=== PATIENT | male | born 1980 | race Caucasian/White ===

== ENCOUNTER → 2017-07-10 07:10 | Outpatient (CLI) | payer BC, SELFPAY ==
[2017-07-10 08:27] LABS: Anion Gap 5 (5-15); BUN 12 mg/dL (7-18); BUN/Creat Ratio 7.3 RATIO (10-20); CPK Total, Creatine Kinase 245 U/L (39-308); Chloride 102 mmol/L (98-107); Creatinine, Serum 1.64 mg/dL (0.70-1.30); EST Glomerular Filtration Rate 50 mL/min (>60); Est Glom Filt Rate - Afr Amer 61 mL/min (>60); Glucose 143 mg/dL (74-106); Potassium 3.9 mmol/L (3.5-5.1); Sodium Level 138 mmol/L (136-145)
== END ==
PROVIDERS: Family Provider Family Medicine; PCP Family Medicine; Visit Provider Internal Medicine Endocrinology, Diabetes & Metabolism
DX: E04.9 Nontoxic goiter, unspecified (principal)
CPT/HCPCS: 36415; 80048; 82550

== ENCOUNTER → 2017-07-24 12:38 | Outpatient (CLI) | payer BC, SELFPAY ==
[2017-07-24 14:03] LABS: Anion Gap 7 (5-15); BUN 9 mg/dL (7-18); Calcium,Total 8.7 mg/dL (8.5-10.1); Chloride 104 mmol/L (98-107); Creatinine, Serum 1.28 mg/dL (0.70-1.30); EST Glomerular Filtration Rate 67 mL/min (>60); Est Glom Filt Rate - Afr Amer 81 mL/min (>60); Glucose 93 mg/dL (74-106); Potassium 4.2 mmol/L (3.5-5.1); Sodium Level 139 mmol/L (136-145)
== END ==
PROVIDERS: Family Provider Family Medicine; PCP Family Medicine; Visit Provider Family Medicine
DX: N28.9 Disorder of kidney and ureter, unspecified (principal)
CPT/HCPCS: 36415; 80048

== ENCOUNTER → 2017-08-21 10:11 | Outpatient (CLI) | payer BC, SELFPAY ==
--- NOTE | 2017-08-21 16:17 | NEURO ---
NCS and/or EMG Patient Report Ordering Doctor: Moris Cobb Ira is a 37-year-old male with chief complaint of numbness and tingling in both hands, worse on the right side. He presents for electrodiagnostic testing. Electrodiagnostic findings: Right median motor nerve demonstrates prolonged distal latency with normal amplitude and conduction velocity. Normal left median motor response. Normal ulnar motor response bilaterally, including conduction across the elbow. Sensory responses are within normal limits. On needle EMG testing, all muscles tested in the upper limbs show no evidence of denervation with normal motor unit action potentials. Electrodiagnostic impression: This is an abnormal study in the upper limbs. 1. Findings demonstrate right-sided median mononeuropathy. This is consistent with a mild right carpal tunnel syndrome If there are any further questions, please do not hesitate to contact me.
== END ==
PROVIDERS: Family Provider Family Medicine; PCP Family Medicine; Visit Provider Internal Medicine Endocrinology, Diabetes & Metabolism
DX: G56.03 Carpal tunnel syndrome, bilateral upper limbs (principal)
CPT/HCPCS: 95886; 95912

== ENCOUNTER → 2017-10-16 08:27 | Outpatient (CLI) | payer BC, SELFPAY ==
[2017-10-16 10:40] LABS: Anion Gap 7 (5-15); BUN 18 mg/dL (7-18); BUN/Creat Ratio 13.2 RATIO (10-20); Calcium,Total 8.9 mg/dL (8.5-10.1); Chloride 106 mmol/L (98-107); Cholesterol 265 mg/dL (200); Creatinine, Serum 1.36 mg/dL (0.70-1.30); EST Glomerular Filtration Rate 63 mL/min (>60); Est Glom Filt Rate - Afr Amer 76 mL/min (>60); Glucose 96 mg/dL (74-106); High Density Lipoprotein 34 mg/dL; Potassium 4.2 mmol/L (3.5-5.1); Sodium Level 142 mmol/L (136-145); Triglycerides 269 mg/dL; Very Low Density Lipoprotein 54 mg/dL (5-40)
== END ==
PROVIDERS: Family Provider Family Medicine; PCP Family Medicine; Visit Provider Family Medicine
DX: Z00.00 Encounter for general adult medical examination without abnormal findings (principal)
CPT/HCPCS: 36415; 80048; 80061

== ENCOUNTER → 2018-02-05 11:45 | Outpatient (CLI) | payer BC, SELFPAY ==
[2018-02-05 14:49] LABS: ALB/GLOB Ratio 1.2 RATIO (0.9-2.4); AST(SGOT) 17 U/L (15-37); Alanine Aminotransfer ALT/SGPT 41 U/L (16-61); Albumin, Serum 4.2 g/dL (3.2-5.0); Alkaline Phosphatase 85 U/L (45-117); Anion Gap 8 (5-15); BUN 13 mg/dL (7-18); BUN/Creat Ratio 10.7 RATIO (10-20); Calcium,Total 8.9 mg/dL (8.5-10.1); Chloride 104 mmol/L (98-107); Cholesterol 218 mg/dL (200); Creatinine, Serum 1.22 mg/dL (0.70-1.30); EST Glomerular Filtration Rate 71 mL/min (>60); Est Glom Filt Rate - Afr Amer 86 mL/min (>60); Globulin 3.5 g/dL (2.2-4.2); Glucose 95 mg/dL (74-106); High Density Lipoprotein 37 mg/dL; Potassium 4.2 mmol/L (3.5-5.1); Protein, Total 7.7 g/dL (6.4-8.2); Sodium Level 139 mmol/L (136-145); Triglycerides 270 mg/dL; Very Low Density Lipoprotein 54 mg/dL (5-40)
== END ==
PROVIDERS: Family Provider Family Medicine; PCP Family Medicine; Visit Provider Family Medicine
DX: E78.5 Hyperlipidemia, unspecified (principal)
CPT/HCPCS: 36415; 80053; 80061

== ENCOUNTER → 2018-04-28 11:51 | Outpatient (CLI) | payer BC, SELFPAY ==
[2018-04-28 14:12] LABS: CRP < 2.90 mg/L (0.0-3.0); Rheumatoid Factor < 10.0 IU/mL (<15)
[2018-04-28 14:13] LABS: Erythrocyte Sedimentation Rate 1 mm/hr (0-15)
[2018-04-30 12:03] LABS: ANTINUCLEAR ANTIBODIES DIRECT Negative (Negative)
--- OUTSIDE RECORDS SUMMARY | 2018-06-21 18:11 | XMS RPT_ITS ---
:1980 Author Organization [facility] Care Team Providers Name Role Phone JORDYN GRACIA Attending Unavailable MORIS COBB Attending Unavailable MORIS COBB Referring Unavailable Nghia Mejia Primary Care Unavailable Nghia Mejia Attending Unavailable Nghia Mejia Referring Unavailable Mejia, Nghia Primary Care Unavailable WIETEREBECCA, MORIS Attending Unavailable WIETECHA, MORIS Referring Unavailable Mejia, Nghia Primary Care Unavailable Mejia, Nghia Attending Unavailable Mejia, Nghia Primary Care Unavailable Mejia, Nghia Attending Unavailable Mejia, Nghia Primary Care Unavailable Mejia, Nghia Attending Unavailable Mejia, Nghia Primary Care Unavailable PROBLEMS PROBLEMS DATE TYPE CONDITION / CODE ATTENDING STATUS SOURCE 03/25/2018 Active Unknown / JORDYN GRACIA Active [facility] UNK(Unknown) Main [place] Repository 10/16/2017 Unknown Z00.00 - Nghia Mejia Active [place] Encounter for [facility] medical Repository examination without abnormal findings / Z00.00(ICD-10) 07/24/2017 Unknown N28.9 - Disorder MejiaNghia wilson Active [place] [facility] ureter, Hospital unspecified / Repository N28.9(ICD-10) 07/10/2017 Unknown 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 For the evaluation of Relative Risk for Cardiovascular Disease, a High Sensitivity CRP (HSCRP) should be ordered. Performed By: #### L501.6710, L505.7010 #### [facility] [address] [place], [place], [id number] RHEUMATOID FACTOR Collected: 04/28/2018 Status: F Source: MANTEE 11:53 AM [facility] REPOSITORY TYPE CODE TESTS RESULT OUT OF RANGE REFERENCE UNITS LAB L505.7010 <15 IU/mL Normal RHEUMATOID FAC < 10.0 Performed By: #### L501.6710, L505.7010 #### [facility] [address] [place], [place], [id number] ERYTHROCYTE SED RATE Collected: 04/28/2018 Status: F Source: ZHOU 11:53 AM [facility] REPOSITORY TYPE CODE TESTS RESULT OUT OF RANGE REFERENCE UNITS LAB L102.0000 0-15 mm/hr Normal SED RATE 1 Performed By: #### L101.9900 #### [facility] [place], [address] ANTINUCLEAR ANTIBODIES Collected: 04/28/2018 Status: F Source: ZOHU DIRECT 11:53 AM [facility] REPOSITORY TYPE CODE TESTS RESULT OUT OF RANGE REFERENCE UNITS LAB L3100.5475 Negative Normal Negative ALCIDES-DIRECT Result Comment: Performed at: - [facility] [address] [id number] Staffing Administrator: Hayder Abreu PhD, Phone: [phone] Performed By: #### L3100.5475 #### [facility] (refer to report for specific site) refer to report for address and phone number PROGRESS Observed: 03/25/2018 Status: COMPLETED Source: [place] 2:04 PM [facility] RE[facility] HNO ID: [id number] Author: Jordyn Gracia Service: (none) Author Type: Physician Type: Progress Notes Filed: 03/25/2018 2:27 PM Note Text: OTONEUROLOGY RE-EVALUATION Last visit: 04/30/17 Overall status: doing fair well ################################################################## ################################################################## Impressions: Improving issues regarding dizziness. Ongoing issues of bilateral (L>R) tinnitus and left facial spasms. Patient manifests an asymmetry of upper cervical spine biomechanics. Recommendations/Plan: Neck physical therapy: continues home exercises Further testing: none at this time - consider audiology evaluation regarding tinnitus Medications: increase gabapentin from 900mg to 1200mg qHS directed toward tinnitus and dizziness. Risks and benefits of the medications were discussed with the patient. Follow-up: PRN. Patient to call in 3-4 weeks to report status. ################################################################## ################################################################## Interval history: Main symptoms: no longer having anxiety (was going for therapy), ongoing tinnitus, muscle spasms in his right ear of in his face at times contracture of facial muscles (shaving, brushing his teeth, smiling) Gabapentin - 900mg qHS Tolerates this Not sure if it's helping Tinnitus: L>R ears High-pitched crickets Constant w/ fluctuation Possibly worse stress? Less aware of this in a louder environment Dizziness: Nothing in a while Imbalance: no Headache: shorter in duration Posterior / behind the ears Dull No throbbing No n/v Photo (always sound sensitive, no worse during a KNIGHT) Few hours (no meds) 2x/month Neck pain: Feels that his neck is better Neck PT/VR: [facility] at [place] Continues HEP ################################################################### Review of Systems: Energy: variable - less when he works more hours than usual Sleep: good ################################################################## Diagnostic tests since last visit: Consultation Dx Date Location PCP Started on crestor for chol Testing Result Date Location Cholesterol blood work ################################################################## Physical Examination: Comprehensive neurological and otological examinations, including musculoskeletal examination of the cervical spine revealed the following findings: Vitals: BP 119/67 Pulse 60 Ht 175.3 cm (5' 9) Wt 105.2 kg (232 lb) BMI 34.26 kg/m? General: Well developed. Well nourished. No acute distress. Pain Behaviors: no pain behaviors observed Carotid examination was normal. General cardiac examination was normal. Mental status examination: Alert and Oriented to time, place and person. Language: fluent speech (limited evaluation) Cranial Nerve exam: Ophthalmologic: Pupils were symmetric. Eye movements: normal, smooth pursuits, no nystagmus. C/o right eye pain with extremes of lateral gaze Facial Strength: symmetric Left Right ESTELLA tender none none ParaC2 tender none none Post. Vertex Normal Normal Cervical spine examination: Position: neutral Flexion: normal and painless Lateral C1 process tenderness: none bilaterally Upper Cervical Rotation: Reduced right Sidebend: Reduced bilaterally, worse to Left Total Cervical Rotation: normal C1 malrotation: Left Motor Exam: Tremor : None Strength (out of 5): Right Left Shoulder Flex 5 5 Gait examination: Usual gait: normal ################################################################## ################################################################## The patient was personally seen and examined by myself. Jordyn Gracia MD [facility]oneurology [facility] T33 cc: Nghia Mejia MD * ? JUDITH Mccauleydsworth * (sent via [employer] - to sec*) (Results of consultation to be transmitted via electronic medical record for those providers who practice within [facility] or with access to [employer] via MD Connect, or via letter) Total time of 19 minutes was spent with the patient regarding the above. Greater than 50% of time was spent on counselling. CHARANJIT Observed: 03/25/2018 Status: COMPLETED Source: [place] 1:40 PM [facility] REPOSITORY Office Visit (LURDES) SHASHI VYAS ([id number]) 1980 M Date Time Provider Department 03/25/18 1:40 PM JORDYN GRACIA During your visit today, we recorded the following information about you: Pulse Blood pressure Weight Height 60/minute 119/67 105.2 kg 1.753 m Jordyn Gracia MD 03/25/2018 2:27 PM Signed OTONEUROLOGY RE-EVALUATION Last visit: 04/30/17 Overall status: doing fair well ################################################################## ################################################################## Impressions: Improving issues regarding dizziness. Ongoing issues of bilateral (L>R) tinnitus and left facial spasms. Patient manifests an asymmetry of upper cervical spine biomechanics. Recommendations/Plan: Neck physical therapy: continues home exercises Further testing: none at this time - consider audiology evaluation regarding tinnitus Medications: increase gabapentin from 900mg to 1200mg qHS directed toward tinnitus and dizziness. Risks and benefits of the medications were discussed with the patient. Follow-up: PRN. Patient to call in 3-4 weeks to report status. ################################################################## ################################################################## Interval history: Main symptoms: no longer having anxiety (was going for therapy), ongoing tinnitus, muscle spasms in his right ear of in his face at times contracture of facial muscles (shaving, brushing his teeth, smiling) Gabapentin - 900mg qHS Tolerates this Not sure if it's helping Tinnitus: L>R ears High-pitched crickets Constant w/ fluctuation Possibly worse stress? Less aware of this in a louder environment Dizziness: Nothing in a while Imbalance: no Headache: shorter in duration Posterior / behind the ears Dull No throbbing No n/v Photo (always sound sensitive, no worse during a KNIGHT) Few hours (no meds) 2x/month Neck pain: Feels that his neck is better Neck PT/VR: [facility] at [place] Continues HEP ################################################################### Review of Systems: Energy: variable - less when he works more hours than usual Sleep: good ################################################################## Diagnostic tests since last visit: Consultation Dx Date Location PCP Started on crestor for chol Testing Result Date Location Cholesterol blood work ################################################################## Physical Examination: Comprehensive neurological and otological examinations, including musculoskeletal examination of the cervical spine revealed the following findings: Vitals: BP 119/67 Pulse 60 Ht 175.3 cm (5' 9) Wt 105.2 kg (232 lb) BMI 34.26 kg/m? General: Well developed. Well nourished. No acute distress. Pain Behaviors: no pain behaviors observed Carotid examination was normal. General cardiac examination was normal. Mental status examination: Alert and Oriented to time, place and person. Language: fluent speech (limited evaluation) Cranial Nerve exam: Ophthalmologic: Pupils were symmetric. Eye movements: normal, smooth pursuits, no nystagmus. C/o right eye pain with extremes of lateral gaze Facial Strength: symmetric Left Right ESTELLA tender none none ParaC2 tender none none Post. Vertex Normal Normal Cervical spine examination: Position: neutral Flexion: normal and painless Lateral C1 process tenderness: none bilaterally Upper Cervical Rotation: Reduced right Sidebend: Reduced bilaterally, worse to Left Total Cervical Rotation: normal C1 malrotation: Left Motor Exam: Tremor : None Strength (out of 5): Right Left Shoulder Flex 5 5 Gait examination: Usual gait: normal ################################################################## ################################################################## The patient was personally seen and examined by myself. Jordyn Gracia MD [facility]oneurology [facility] T33 cc: Nghia Mejia MD * ? JUDITH Mccauley * (sent via [employer] - to sec*) (Results of consultation to be transmitted via electronic medical record for those providers who practice within [facility] or with access to [employer] via MD Connect, or via letter) Total time of 19 minutes was spent with the patient regarding the above. Greater than 50% of time was spent on counselling. 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 MAGNESIUM 250 MG TABLET Take 250 mg by mouth once matthew* * DESONIDE 0.05 % LOTION Apply to affected area(s) of * BUPROPION XL 150 MG TAB Take 150 mg by mouth once matthew* GINKGO BILOBA 40 MG CAPSULE Take by mouth once daily. Problem List As Of Date 03/25/2018 Noted Resolved VENTRAL HERNIA NOS [K43.9] INVALID FOR* OTHER PSORIASIS [L40.8] INVALID FOR* SEBORRHEIC DERMATITIS NOS [L21.9] INVALID FOR* Sebaceous cyst [L72.3] INVALID FOR* Hyperlipidemia [E78.5] INVALID FOR*09/14/2015 More... Dyslipidemia (high LDL; low HDL) [E78.5] INVALID FOR* Sinus bradycardia [R00.1] INVALID FOR* Orthostasis [I95.1] INVALID FOR* Prescriptions ordered this encounter Disp Refills Start End GABAPENTIN 300 MG CAPSULE 120 * 11 03/25/2018 03/25/2019 Route: ORAL Sig: Take 4 capsules by mouth daily at bedtime. Medications Discontinued During This Encounter gabapentin (NEURONTIN) 300 mg capsule 90 c* 3 12/20/2017 03/25/2018 Route: ORAL Sig: Take 3 capsules by mouth daily at bedtime. Disc: Reason for discontinue is not on file. Follow-up and Disposition History Recorded Encounter Status:Closed by JORDYN GRACIA MD on 03/25/18 COMPREHENSIVE METABOLIC Collected: 02/05/2018 Status: F Source: ZHOU NICHOLSON 11:46 AM [facility] REPOSITORY Order Comment: Order Date: 02/04/18 Order Info: 0786-1 - CMP Order Info: 27273-7 - LIPID TYPE CODE TESTS RESULT OUT OF RANGE REFERENCE UNITS LAB L501.0100 74-106 mg/dL Normal GLU 95 Result Comment: Please note revised GLUCOSE reference range effective 2017. LAB L501.1000 7-18 mg/dL Normal BUN 13 LAB L501.1100 0.70-1.30 mg/dL Normal CREAT,SERUM 1.22 Result Comment: The validity of the calculated GFR AND GFRAA in patients over 70 years has not been determined. Clinical correlation is essential. LAB L501.1110 >60 mL/min Normal EST GFR 71 Result Comment: Non- GFR Calc LAB L501.1115 >60 mL/min Normal EST GFR - AA 86 Result Comment: GFR Calc LAB L501.1300 10-20 RATIO Normal BUN/CRE 10.7 LAB L501.1500 6.4-8.2 g/dL T Normal PROT 7.7 LAB L501.1800 3.2-5.0 g/dL Normal ALB 4.2 LAB L501.1950 2.2-4.2 g/dL Normal GLOB 3.5 LAB L501.2000 0.9-2.4 RATIO Normal A/G 1.2 LAB L501.2200 8.5-10.1 mg/dL CA Normal 8.9 LAB L501.4100 15-37 U/L Normal AST 17 LAB L501.4305 45-117 U/L Normal ALK P 85 LAB L501.4405 16-61 U/L Normal ALT 41 LAB L501.4600 0.20-1.00 mg/dL T Normal BILI 0.40 LAB L501.5300 136-145 mmol/L NA Normal 139 LAB L501.5600 3.5-5.1 mmol/L K Normal 4.2 LAB L501.5900 98-107 mmol/L CL Normal 104 LAB L501.6100 21.0-32.0 mmol/L Normal CO2 27.0 LAB L501.6200 5-15 Normal GAP 8 Performed By: #### L500.4050, L500.4100 #### [facility] [address] [place], [place], [address] LIPID PROFILE Collected: 02/05/2018 Status: F Source: ZHOU 11:46 AM [facility] REPOSITORY Order Comment: Order Date: 02/04/18 Order Info: [id number] - CMP Order Info: 10294-5 - LIPID TYPE CODE TESTS RESULT OUT OF RANGE REFERENCE UNITS LAB L501.4900 200 mg/dL High CHOL 218 Result Comment: <200 mg/dL Desirable 200-240 mg/dL Borderline >240 mg/dL High Risk LAB L501.5000 mg/dL High TRIG 270 Result Comment: The drugs N-Acetylcysteine and Metamizole may falsely depress this assay. Serum Triglycerides Reference Interval Normal <150 mg/dL Borderline high 150 - 199 mg/dL High 200 - 499 mg/dL Very High > or = 500 mg/dL LAB L501.6400 mg/dL Low HDL 37 Result Comment: The drugs N-Acetylcysteine and Metamizole may falsely depress this assay. Reference Range HDL <40 mg/dL Low HDL Cholesterol HDL >or= 60 mg/dL High HDL Cholesterol LAB L501.6500 0-130 mg/dL Normal LDL 127 LAB L501.6600 5-40 mg/dL High VLDL 54 Performed By: #### L500.4050, L500.4100 #### [facility] [address] [facility] [place], [place], [address] BASIC METABOLIC Collected: 10/16/2017 Status: F Source: ZHOU PROFILE (BMP) 8:28 AM [facility] REPOSITORY TYPE CODE TESTS RESULT OUT OF RANGE REFERENCE UNITS LAB L501.0100 74-106 mg/dL Normal GLU 96 Result Comment: Please note revised GLUCOSE reference range effective 2017. LAB L501.1000 7-18 mg/dL Normal BUN 18 LAB L501.1100 0.70-1.30 mg/dL High CREAT,SERUM 1.36 Result Comment: The validity of the calculated GFR AND GFRAA in patients over 70 years has not been determined. Clinical correlation is essential. LAB L501.1110 >60 mL/min Normal EST GFR 63 Result Comment: Non- GFR Calc LAB L501.1115 >60 mL/min Normal EST GFR - AA 76 Result Comment: GFR Calc LAB L501.1300 10-20 RATIO Normal BUN/CRE 13.2 LAB L501.2200 8.5-10.1 mg/dL CA Normal 8.9 LAB L501.5300 136-145 mmol/L NA Normal 142 LAB L501.5600 3.5-5.1 mmol/L K Normal 4.2 LAB L501.5900 98-107 mmol/L CL Normal 106 LAB L501.6100 21.0-32.0 mmol/L Normal CO2 29.0 LAB L501.6200 5-15 Normal GAP 7 Performed By: #### L500.2500, L500.4100 #### [facility] [address] [place], [place], [id number] LIPID PROFILE Collected: 10/16/2017 Status: F Source: [place] 8:28 AM [facility] REPOSITORY TYPE CODE TESTS RESULT OUT OF RANGE REFERENCE UNITS LAB L501.4900 200 mg/dL High CHOL 265 Result Comment: <200 mg/dL Desirable 200-240 mg/dL Borderline >240 mg/dL High Risk LAB L501.5000 mg/dL High TRIG 269 Result Comment: The drugs N-Acetylcysteine and Metamizole may falsely depress this assay. Serum Triglycerides Reference Interval Normal <150 mg/dL Borderline high 150 - 199 mg/dL High 200 - 499 mg/dL Very High > or = 500 mg/dL LAB L501.6400 mg/dL Low HDL 34 Result Comment: The drugs N-Acetylcysteine and Metamizole may falsely depress this assay. Reference Range HDL <40 mg/dL Low HDL Cholesterol HDL >or= 60 mg/dL High HDL Cholesterol LAB L501.6500 0-130 mg/dL High LDL 177 LAB L501.6600 5-40 mg/dL High VLDL 54 Performed By: #### L500.2500, L500.4100 #### [facility] [address] [place], [place], [id number] NCS AND/OR EMG Observed: 08/21/2017 Status: F Source: ZHOU PATIENT 4:37 PM [facility] REPOSITORY [facility] Pulmonary Services/Neurology [address] [place] [address] MR#: [id number] Acct: [id number] Name: SHASHI VYAS Rep #: [id number] : 1980 37 From: Irina Espinoza MD Referring Dr: MORIS COBB Status: REG CLI Ordering Dr: Date: [facility] Sex[facility] M C NCS and/or EMG Patient Report Ordering Doctor: Moris Cobb Shashi Ira is a 37-year-old male with chief complaint of numbness and tingling in both hands, worse on the right side. He presents for electrodiagnostic testing. Electrodiagnostic findings: Right median motor nerve demonstrates prolonged distal latency with normal amplitude and conduction velocity. Normal left median motor response. Normal ulnar motor response bilaterally, including conduction across the elbow. Sensory responses are within normal limits. On needle EMG testing, all muscles tested in the upper limbs show no evidence of denervation with normal motor unit action potentials. Electrodiagnostic impression: This is an abnormal study in the upper limbs. 1. Findings demonstrate right-sided median mononeuropathy. This is consistent with a mild right carpal tunnel syndrome If there are any further questions, please do not hesitate to contact me. 08/21/17 1637 <Electronically signed by Irina Espinoza MD> Date Irina Espinoza MD CC: Irina Espinoza; MORIS COBB; Nghia Mejia MD Date Dictated: 08/21/171616 Date Transcribed: 08/21/171616 Major Assembly Inspector: LINDA Signed BASIC METABOLIC Collected: 07/24/2017 Status: F Source: ZHOU PROFILE (BMP) 12:46 PM [facility] REPOSITORY TYPE CODE TESTS RESULT OUT OF RANGE REFERENCE UNITS LAB L501.0100 74-106 mg/dL Normal GLU 93 Result Comment: Please note revised GLUCOSE reference range effective 2017. LAB L501.1000 7-18 mg/dL Normal BUN 9 LAB L501.1100 0.70-1.30 mg/dL Normal CREAT,SERUM 1.28 Result Comment: The validity of the calculated GFR AND GFRAA in patients over 70 years has not been determined. Clinical correlation is essential. LAB L501.1110 >60 mL/min Normal EST GFR 67 Result Comment: Non- GFR Calc LAB L501.1115 >60 mL/min Normal EST GFR - AA 81 Result Comment: GFR Calc LAB L501.1300 10-20 RATIO Low BUN/CRE 7.0 LAB L501.2200 8.5-10.1 mg/dL Normal CA 8.7 LAB L501.5300 136-145 mmol/L Normal NA 139 LAB L501.5600 3.5-5.1 mmol/L Normal K 4.2 Result Comment: Slight Hemolysis, Result may be falsely increased. LAB L501.5900 98-107 mmol/L Normal CL 104 LAB L501.6100 21.0-32.0 mmol/L Normal CO2 28.0 LAB L501.6200 5-15 Normal 7 GAP Performed By: #### L500.2500 #### [facility] [address] [place], [address] BASIC METABOLIC Collected: 07/10/2017 Status: F Source: [place] PROFILE ([facility]) 7:14 AM [facility] REPOSITORY TYPE CODE TESTS RESULT OUT OF RANGE REFERENCE UNITS LAB L501.0100 74-106 mg/dL High GLU 143 Result Comment: Fasting Glucose result greater than or equal to 126 mg/dL suggests DIABETES MELLITUS per A.D.A. criteria. Please note revised GLUCOSE reference range effective 2017. LAB L501.1000 7-18 mg/dL Normal BUN 12 LAB L501.1100 0.70-1.30 mg/dL High CREAT,SERUM 1.64 Result Comment: The validity of the calculated GFR AND GFRAA in patients over 70 years has not been determined. Clinical correlation is essential. LAB L501.1110 >60 mL/min Low EST GFR 50 Result Comment: Non- GFR Calc LAB L501.1115 >60 mL/min Normal EST GFR - AA 61 Result Comment: GFR Calc LAB L501.1300 10-20 RATIO Low BUN/CRE 7.3 LAB L501.2200 8.5-10.1 mg/dL Normal CA 9.0 LAB L501.5300 136-145 mmol/L Normal NA 138 LAB L501.5600 3.5-5.1 mmol/L Normal K 3.9 LAB L501.5900 98-107 mmol/L Normal CL 102 LAB L501.6100 21.0-32.0 mmol/L Normal CO2 31.0 LAB L501.6200 5-15 Normal GAP 5 Performed By: #### L500.2500, L501.3620 #### [facility] [address] [place], [address] CPK TOTAL, CREATINE Collected: 07/10/2017 Status: F Source: [place] KINASE 7:14 AM [facility] REPOSITORY TYPE CODE TESTS RESULT OUT OF RANGE REFERENCE UNITS LAB L501.3620 39-308 U/L Normal CPK TOTAL 245 Performed By: #### L500.2500, L501.3620 #### [facility] [address] [place], [address] ALLERGIES ALLERGIES DATE TYPE / CODE NAME / CODE REACTION SEVERITY SOURCE 09/17/2015 Drug No Known Unknown [facility] Allergy/416 Allergies/Y79011 Hospital [id number](SNOM 0388(RXNORM) Repository ED CT) Drug NO KNOWN [facility] Class/77918 ALLERGIES [facility] 1003(SNOMED Repository CT) ENCOUNTERS ENCOUNTERS ADMIT/DISCHARGE ACCOUNT ADMITTING ENCOUNTER LOCATION SOURCE NUMBER CLASS 04/28/2018 [id number] [facility] ing:MFPLAB Repository 03/25/2018/03/26/20 [id number] Ambulatory [address] Repository 02/05/2018 [id number] [facility] ing:MFPLAB Repository 10/16/2017 [id number] [facility] ing:MFPLAB Repository 08/21/2017 [id number] [facility] ing:PSN Repository 07/24/2017 [id number] [facility] ing:LAB Repository 07/10/2017 [id number] Ambulatory [place] [facility] ing:LAB Repository PAYERS PAYERS ENCOUNTER GUARANTOR PAYER SUBSCRIBER SOURCE 04/28/2018 Shashi R Primary Shashi R [place] [id number] Insurance:ANTHEMPolic [facility] [place] Number: [id number] [address]Ply: (330) [id number] Repository [phone] () Date:[id number] [place] [address] [id number]: 04/28/2018 Secondary NOT GIVENUNK [place] Insurance:SELF PAY [place] [facility] Number: Effective Repository Date:2018-04-28 02/05/2018 Shashi R Primary Shashi R [place] [id number] [place] Insurance:ANTHEMPolic [place]D[facility] [place] [facility]: [id number] [id number]: [phone]) [id number] Repository [phone] () Date:[id number] [address]WQ: 02/05/2018 Secondary NOT GIVENUNK [place] Insurance:SELF PAY [facility] Number: Effective Repository Date:2018-02-05 10/16/2017 Shashi R Primary Shashi R [place] [id number] [place] Insurance:ANTHEMPolic AngleDOB: [facility] [place] Number: [id number] [address]Afv: [phone]) [id number] Repository [phone] () Date:[id number] [address]GX: 10/16/2017 Secondary NOT GIVENUNK [place] Insurance:SELF PAY [facility] Number: Effective Repository Date:2017-10-16 08/21/2017 Shashi R Primary Shashi R [place] [id number] DOMTIILA Insurance:ANTHEMPolic AngleDOB: [facility] [place] [facility]: [id number] [address]Bvk: [phone]) [id number] Repository [phone] () Date:[id number] [address]HH: 08/21/2017 Secondary NOT GIVENUNK [place] Insurance:SELF PAY [facility] Number: Effective Repository Date:2017-07-02 07/24/2017 Shashi R Primary Shashi R [place] [id number] [place] Insurance:ANTHEMPolic AngleD[place]: [id number] [address]Omg: (330) [id number] Repository [phone] () Date:3974-02-98[address], [place] [address]PZ: 07/24/2017 Secondary NOT GIVENUNK [place] Insurance:SELF PAY [facility] Number: Effective Repository Date:2017-07-24 07/10/2017 Shashi R Primary Shashi R [place] [id number] [place] Insurance:ANTHEMPolic AngleDOB: [place] Number: [id number] [address]Vbh: (330) [id number] Repository [phone] () Date:1964-74-76[address], [place] [address]NB: 07/10/2017 Secondary NOT GIVENUNK [place] Insurance:SELF PAY [facility] Number: Effective Repository Date:2017-07-10
== END ==
PROVIDERS: Family Provider Family Medicine; PCP Family Medicine; Visit Provider Family Medicine
DX: R52 Pain, unspecified (principal)
CPT/HCPCS: 36415; 85652; 86038; 86140; 86431

== ENCOUNTER → 2018-07-17 12:12 | Outpatient (CLI) | payer BC, SELFPAY ==
[2018-07-17 14:11] LABS: Absolute Lymphocyte Count 2.02 X10^3/ul (0.83-4.51); Absolute Neutrophil Count 3.1 X10^3/uL (2.0-7.7); Basophil# 0.01 X10^3/uL; Basophil% 0.2 % (0-1); Eosinophil# 0.07 X10^3/uL; Eosinophils% 1.3 % (0-5); Hematocrit 47.1 % (40-54); Hemoglobin 15.8 g/dl (13.0-16.5); Lymphocyte # 2.02 X10^3/ul (4.0); Lymphocyte % 36.3 % (19-41); Mean Corp Hgb Conc 33.5 g/gl (32-36); Mean Corpuscular Hgb 28.7 pg (27.0-32.0); Mean Corpuscular Volume 85.5 fL (80-94); Mean Platelet Vol. 9.6 fl (6.2-12.0); Monocyte# 0.34 X10^3/uL; Monocyte% 6.1 % (0-10); Neutrophil # 3.12 X10^3/uL (2.7-7.7); Neutrophil % 55.9 % (47-70); Platelet Count 341 K/mm3 (150-450); RBC Distribution Width CV 12.5 % (11.6-14.6); RBC Distribution Width SD 39.1 fl (35.1-43.9); Red Blood Count 5.51 M/mm3 (4.6-6.2); White Blood Count 5.6 K/mm3 (4.4-11.0)
[2018-07-17 14:14] LABS: POSITIVE COUNT NO; POSITIVE DIFFERENTIAL NO; POSITIVE MORPHOLOGY NO
[2018-07-17 14:32] LABS: Vitamin B12 1988 pg/mL (211-911); Vitamin D,25 Hydroxy 37.7 ng/mL (29.95-100.01)
[2018-07-17 15:01] LABS: ALB/GLOB Ratio 1.3 RATIO (0.9-2.4); AST(SGOT) 24 U/L (15-37); Alanine Aminotransfer ALT/SGPT 56 U/L (16-61); Albumin, Serum 4.2 g/dL (3.2-5.0); Alkaline Phosphatase 95 U/L (45-117); Anion Gap 9 (5-15); BUN 21 mg/dL (7-18); BUN/Creat Ratio 17.5 RATIO (10-20); Calcium,Total 8.6 mg/dL (8.5-10.1); Chloride 104 mmol/L (98-107); EST Glomerular Filtration Rate 72 mL/min (>60); Est Glom Filt Rate - Afr Amer 87 mL/min (>60); Globulin 3.3 g/dL (2.2-4.2); Glucose 84 mg/dL (74-106); Luteinizing Hormone 3.6 mIU/mL; Potassium 3.8 mmol/L (3.5-5.1); Protein, Total 7.5 g/dL (6.4-8.2); Sodium Level 142 mmol/L (136-145); T4 Free Direct 0.95 ng/dL (0.76-1.46); Thyroid Stim Hormone (TSH) 1.58 uIU/mL (0.358-3.74)
[2018-07-20 13:56] LABS: DHEA Sulfate 83.3 ug/dL (102.6-416.3); Testosterone, % Free 2.53 % (1.50-4.20); Testosterone, Free 10.65 ng/dL (5.00-21.00)
[2018-07-21 12:22] LABS: Anti-Thyroglobulin AB < 1.0 IU/mL (0.0-0.9); Testosterone, Total 421 ng/dL (264-916); Thyroglobulin, Serum Qt. 6.9 ng/mL (1.4-29.2); Thyroid Peroxidase AB 11 IU/mL (0-34)
== END ==
PROVIDERS: Family Provider Family Medicine; PCP Family Medicine; Referring Provider Family Medicine; Visit Provider Internal Medicine Endocrinology, Diabetes & Metabolism
DX: E04.9 Nontoxic goiter, unspecified (principal); E29.1 Testicular hypofunction; E55.9 Vitamin D deficiency, unspecified; E53.9 Vitamin B deficiency, unspecified
CPT/HCPCS: 36415; 80053; 82306; 82607; 82627; 83002; 84402; 84403; 84432; 84439; 84443; 85025; 86376; 86800; 82626

== ENCOUNTER → 2018-08-21 09:19 | Outpatient (CLI) | payer BC, SELFPAY ==
[2018-08-21 10:51] LABS: Anion Gap 4 (5-15); BUN 16 mg/dL (7-18); BUN/Creat Ratio 12.4 RATIO (10-20); Calcium,Total 9.1 mg/dL (8.5-10.1); Chloride 105 mmol/L (98-107); Cholesterol 201 mg/dL (200); Creatinine, Serum 1.29 mg/dL (0.70-1.30); EST Glomerular Filtration Rate 66 mL/min (>60); Est Glom Filt Rate - Afr Amer 80 mL/min (>60); Glucose 74 mg/dL (74-106); High Density Lipoprotein 33 mg/dL; Potassium 4.7 mmol/L (3.5-5.1); Sodium Level 138 mmol/L (136-145); Thyroid Stim Hormone (TSH) 1.49 uIU/mL (0.358-3.74); Triglycerides 281 mg/dL; Very Low Density Lipoprotein 56 mg/dL (5-40)
== END ==
PROVIDERS: Family Provider Family Medicine; PCP Family Medicine; Referring Provider Family Medicine; Visit Provider Family Medicine
DX: Z00.00 Encounter for general adult medical examination without abnormal findings (principal)
CPT/HCPCS: 36415; 80048; 80061; 84403; 84443

== ENCOUNTER → 2020-09-08 12:25 | Outpatient (CLI) | payer BC, SELFPAY ==
[2020-09-08 15:51] LABS: ALB/GLOB Ratio 1.3 RATIO (0.9-2.4); AST(SGOT) 13 U/L (15-37); Alanine Aminotransfer ALT/SGPT 33 U/L (16-61); Albumin, Serum 4.2 g/dL (3.2-5.0); Alkaline Phosphatase 87 U/L (45-117); Anion Gap 6 (5-15); BUN 15 mg/dL (7-18); BUN/Creat Ratio 14.3 RATIO (10-20); Calcium,Total 8.8 mg/dL (8.5-10.1); Chloride 104 mmol/L (98-107); Cholesterol 217 mg/dL (200); Creatinine, Serum 1.05 mg/dL (0.70-1.30); EST Glomerular Filtration Rate 83 mL/min (>60); Est Glom Filt Rate - Afr Amer 100 mL/min (>60); Globulin 3.2 g/dL (2.2-4.2); Glucose 62 mg/dL (74-106); High Density Lipoprotein 42 mg/dL; Potassium 3.5 mmol/L (3.5-5.1); Protein, Total 7.4 g/dL (6.4-8.2); Sodium Level 138 mmol/L (136-145); Triglycerides 128 mg/dL; Very Low Density Lipoprotein 26 mg/dL (5-40)
== END ==
PROVIDERS: PCP Family Medicine; Referring Provider Family Medicine; Visit Provider Family Medicine
DX: E78.5 Hyperlipidemia, unspecified (principal)
CPT/HCPCS: 36415; 80053; 80061

== ENCOUNTER → 2021-03-13 11:04 | Outpatient (CLI) | payer BC, SELFPAY ==
[2021-03-13 12:58] LABS: ALB/GLOB Ratio 1.2 RATIO (0.9-2.4); AST(SGOT) 14 U/L (15-37); Alanine Aminotransfer ALT/SGPT 27 U/L (16-61); Albumin, Serum 3.8 g/dL (3.2-5.0); Alkaline Phosphatase 74 U/L (45-117); Anion Gap 5 (5-15); BUN 15 mg/dL (7-18); BUN/Creat Ratio 12.2 RATIO (10-20); Calcium,Total 8.4 mg/dL (8.5-10.1); Chloride 106 mmol/L (98-107); Cholesterol 146 mg/dL (200); Creatinine, Serum 1.23 mg/dL (0.70-1.30); EST Glomerular Filtration Rate 69 mL/min (>60); Est Glom Filt Rate - Afr Amer 83 mL/min (>60); Globulin 3.1 g/dL (2.2-4.2); Glucose 80 mg/dL (74-106); High Density Lipoprotein 46 mg/dL; Potassium 3.8 mmol/L (3.5-5.1); Protein, Total 6.9 g/dL (6.4-8.2); Sodium Level 141 mmol/L (136-145); Triglycerides 128 mg/dL; Very Low Density Lipoprotein 26 mg/dL (5-40)
== END ==
PROVIDERS: PCP Family Medicine; Visit Provider Family Medicine
DX: E78.5 Hyperlipidemia, unspecified (principal)
CPT/HCPCS: 36415; 80053; 80061

== ENCOUNTER 2021-09-11 10:14 | Outpatient (CLI) | payer BC, SELFPAY ==
[2021-09-11 12:23] LABS: ALB/GLOB Ratio 1.2 RATIO (0.9-2.4); AST(SGOT) 15 U/L (15-37); Alanine Aminotransfer ALT/SGPT 34 U/L (16-61); Albumin, Serum 3.9 g/dL (3.2-5.0); Alkaline Phosphatase 69 U/L (45-117); Anion Gap 7 (5-15); BUN 26 mg/dL (7-18); BUN/Creat Ratio 20.8 RATIO (10-20); Calcium,Total 8.7 mg/dL (8.5-10.1); Chloride 105 mmol/L (98-107); Cholesterol 157 mg/dL (200); Creatinine, Serum 1.25 mg/dL (0.70-1.30); EST Glomerular Filtration Rate 68 mL/min (>60); Est Glom Filt Rate - Afr Amer 82 mL/min (>60); Globulin 3.2 g/dL (2.2-4.2); Glucose 69 mg/dL (74-106); High Density Lipoprotein 43 mg/dL; Protein, Total 7.1 g/dL (6.4-8.2); Sodium Level 139 mmol/L (136-145); Triglycerides 140 mg/dL; Very Low Density Lipoprotein 28 mg/dL (5-40)
== END 2021-09-11 23:59 | disposition home or self-care (01) ==
LOC: MFPLAB 10:15
PROVIDERS: PCP Family Medicine; Visit Provider Family Medicine
DX: E78.5 Hyperlipidemia, unspecified (principal)
CPT/HCPCS: 36415; 80053; 80061

== ENCOUNTER → 2021-10-18 | Outpatient (CLI) | payer BC, SELFPAY ==
--- NOTE | 2021-10-18 | LIP_PTH ---
PATIENT: ABY VYAS LOC: [facility] U#:[id number] AGE/SX: 41/M ROOM: RE10/18/[address]: Dr. Louis Crawford MD : 1980 BED: DIS: 10/18/2021 SPEC #: [id number] RECD: 10/18/21 13:44 STATUS: SIDNEY DALEYBrissa #: [id number] SUSAN: 10/18/21 00:[address]: Louis Crawford DEPT: SURGICAL PATHOLOGY RECD BY: Cosmo Blank ENTERED: 10/18/21 13:45 SP TYPE: LIPOMA OTHR DR: Dr. Nghia Mejia MD Tissues: Soft tissues, NOS Procedures: Surgery Specimen Level III HEADER OPERATION: Excision of lipoma on chest left PRE-OP DIAGNOSIS: Left chest lipoma TISSUE SUBMITTED: Lipoma MICROSCOPIC DIAGNOSIS Left chest lipoma, excision: Mature adipose tissue, consistent with lipoma. SJ:lydia 10/19/2021 MICROSCOPIC DESCRIPTION Slides are reviewed. GROSS DESCRIPTION Received in fixative is one container labeled with the patient's name and designated left chest lipoma. The specimen consists of two pieces of yellow adipose tissue measuring in aggregate 5 x 4.5 x 1.5 cm. Sections reveal yellow adipose cut surfaces without area of hemorrhage, necrosis or cystic degeneration. Assistant Grocery Store Manager sections are submitted in two cassettes. / SJ:rg 10/18/2021 TC:1 CPT: 82162
== END | disposition home or self-care (01) ==
LOC: LABSPEC 11:40
PROVIDERS: PCP Family Medicine; Referring Provider Surgery; Visit Provider Surgery
DX: D17.1 Benign lipomatous neoplasm of skin and subcutaneous tissue of trunk (principal)
CPT/HCPCS: 88304

== ENCOUNTER 2021-10-21 10:37 | Emergency (ER) | payer BC, SELFPAY ==
[2021-10-21 10:38] VITALS: BP 117/93; PULSE 64; RESP 18; TEMP 36.1; O2SAT 97; BMI 32.6
--- NOTE | 2021-10-21 11:01 | EKG12_ITS ---
Test Reason : SYNCOPE Blood Pressure : / mmHG Vent. Rate : 052 BPM Atrial Rate : 052 BPM P-R Int : 180 ms QRS Dur : 092 ms QT Int : 376 ms P-R-T Axes : 053 -21 -24 degrees QTc Int : 349 ms Sinus bradycardia Nonspecific ST abnormality Abnormal ECG Confirmed by ANGI CHARLES, DANIKA ([id number]), society editor NITIN CASTELAN ([id number]) on 10/24/2021 1:10:23 PM Referred By: SHANNAN/YUE Confirmed By:DANIKA WHITLEY MD
--- NOTE | 2021-10-21 11:01 | EX.ED.DYSGE1 ---
HPI History of Present Illness Chief Complaint: Syncope Informant: patient Narrative Narrative: 41-year-old male presented to the emergency room following a syncopal episode. Patient states that this morning he was laying in bed when he got a cramp on his left thigh. His significant other states that he then passed out. She states that he was twitching. He states one of the twitches caused him to come back awake. He does not recall having any chest pain or palpitations. No nausea. He denies being sweaty. No loss of bowel or bladder control. No oral pharyngeal injury. He has had a prior syncopal episode following a MMR injection as a teenager. He works out 5 days a week and has recently ran a [employer] without any difficulty. [facility] Medical History Anxiety Hyperlipidemia Hypoglycemia Narcolepsy Panic disorder Psoriasis Home Medications gabapentin 300 mg capsule 900 mg PO QHS 10/02/21 [History Last Taken Unknown] rosuvastatin 20 mg tablet 20 mg PO DAILY 10/02/21 [History Last Taken Unknown] Allergy/AdvReac Type Severity Reaction Status Date / Time sertraline AdvReac Mild restless Verified 10/21/21 10:38 legs Family History Father Diabetes Mother Heart disease Surgical History History of repair of ACL History of umbilical hernia repair Social History (Updated 10/21/21 @ 11:[address] Juan Manuel Diego DO) Smoking Status: Former smoker substance use type: does not use ROS ROS ED Constitutional Constitutional ED: Denies chills, fever(s) or weight loss Eyes Eyes: Denies change in vision or diplopia ENT ENT ED: Denies ear pain, rhinorrhea or sore throat Cardiovascular Cardiovascular: Reports other Details: Syncope ; Denies chest pain, orthopnea, palpitations or racing heartbeat Respiratory/Chest Respiratory/Chest: Denies cough, dyspnea or orthopnea Gastrointestinal Gastrointestinal: Denies abdominal pain, diarrhea, nausea or vomiting Genitourinary Genitourinary ED: Denies dysuria, hematuria or urinary frequency Musculoskeletal Musculoskeletal: Reports other Details: Left thigh cramp ; Denies arthralgias or myalgias Integumentary Denies abscess or rash Neurologic Neurologic: Denies headache(s) or weakness Psychiatric Psychiatric: Denies anxiety, depression, suicidal ideation or suicidal thoughts Endocrine Endocrinology: Denies polydipsia, polyphagia or polyuria Allergic/Immunologic Allergic/Immunologic ED: Denies mouth swelling, tongue swelling or urticaria EXAM Physical Exam Const Vital Signs: 10/21/21 10:38 10/21/21 11:03 Temperature 97.0 F L Temperature Source Temporal Pulse Rate 64 Respiratory Rate 18 Respiratory Effort Normal Non-Labored Blood Pressure 117/93 H Blood Pressure Mean 101 Pulse Ox 97 Oxygen Delivery Method Room Air Positive well nourished and well developed General Appearance ED: well developed HEENT Reports normocephalic, head/scalp atraumatic, TM's clear and moist mucous membranes Negative for trauma Tympanic Membrane ED: Yes TM's clear Eyes PERRL and EOMs intact bilaterally Neck no lymphadenopathy, supple and no JVD Resp normal respiratory effort and clear to auscultation bilaterally Cardio regular rate, regular rhythm and no murmurs GI normal to inspection, nondistended, normoactive bowel sounds and non-tender Palpation: soft Back/Spine no CVA tenderness and normal ROM Extremity normal to inspection General Extremety ED: Negative for edema General Extremity: Negative for edema Neuro oriented x3 and CN's II-XII intact bilaterally Sensorium / Orientation: alert Motor Exam: strength 5/5 throughout Psych mental status grossly normal Mood & Affect: Negative for depressed or tearful Skin no rashes or lesions noted and no wounds MDM MDM MDM Narrative Medical decision making narrative: CBC is normal BMP is normal troponin high-sensitivity 28 my interpretation of the chest x-ray is no acute process. Patient has had no events on the monitor. It appears the patient sustained a syncopal episode due to pain. At this point patient will be discharged home. He was given return instructions and he notes understanding. Lab Data Attestation: I reviewed the patient's lab results. Labs: Laboratory Results - last 24 hr 10/21/21 10/21/21 11:10 11:10 WBC 6.0 RBC 5.36 Hgb 15.5 Hct 46.6 MCV 86.9 MCH 28.9 MCHC 33.3 RDW Std Deviation 38.9 RDW Coeff of Luci 12.2 Plt Count 326 MPV 8.9 Immature Gran % (Auto) 0.300 Neut % (Auto) 54.7 Lymph % (Auto) 33.2 [place] % (Auto) 8.5 Eos % (Auto) 2.8 Baso % (Auto) 0.5 Absolute Neuts (auto) 3.3 Absolute Lymphs (auto) 2.00 Nucleated RBC % 0 Sodium 136 Potassium 4.0 Chloride 101 Carbon Dioxide 31.0 Anion Gap 4 L BUN 18 Creatinine 1.16 Estim Creat Clear Calc 81.08 Est GFR (MDRD) Af Amer 89 Est GFR (MDRD) Non-Af 74 BUN/Creatinine Ratio 15.5 Glucose 100 Calcium 8.5 Troponin I High Sens 28 EKG Initial EKG: Attestation: I personally reviewed and interpreted this EKG as follows: Comments: Sinus bradycardia with a ventricular rate of 52 bpm Discharge Plan Triage Chief Complaint: Syncope ED Provider: Juan Manuel Diego Dx/Rx/DC Orders Clinical Impression: Syncope, Muscle cramp Instructions: ED Fainting, Vagal Reaction Prescriptions: No Action gabapentin 300 mg capsule 900 mg PO QHS RF: 0 rosuvastatin 20 mg tablet 20 mg PO DAILY RF: 0 Primary Care Provider: Nghia Mejia Referrals: Nghia Mejia MD [Primary Care Provider] - As Needed Disposition Disposition: Home, Self Care
--- NOTE | 2021-10-21 11:15 | RAD_ITS ---
STUDY: X-RAY CHEST REASON FOR EXAM: Male, 41 years old. Syncope TECHNIQUE: Single AP portable view of the chest. COMPARISON: None. FINDINGS: The lungs are clear and expanded. There is no demonstrated pleural abnormality. Normal size heart. Normal mediastinum and nelia. Normal visualized pulmonary arteries. Normal visualized aortic arch and descending thoracic aorta. Normal visualized thoracic spine. Normal visualized ribs, clavicles, and shoulders. There is no demonstrated abnormality of the visualized soft tissue structures of the upper abdomen. RAD/Chest 1 View (Portable) IMPRESSION: Normal x-ray examination of the chest. Electronically Signed: Jordan Smalls MD at 12:07 EDT Reading Location ID and State: [facility] / [place] , Service support ,
[2021-10-21 11:23] LABS: Absolute Neutrophil Count 3.3 X10^3/uL (2.0-7.7); Basophil# 0.03 X10^3/uL; Basophil% 0.5 % (0-1); Eosinophil# 0.17 X10^3/uL; Eosinophils% 2.8 % (0-5); Hematocrit 46.6 % (40-54); Hemoglobin 15.5 g/dL (13.0-16.5); Lymphocyte % 33.2 % (19-41); Mean Corp Hgb Conc 33.3 g/dL (32-36); Mean Corpuscular Hgb 28.9 pg (27.0-32.0); Mean Corpuscular Volume 86.9 fL (80-94); Mean Platelet Vol. 8.9 fl (6.2-12.0); Monocyte# 0.51 X10^3/uL; Monocyte% 8.5 % (0-10); NRBC Flagged by Analyzer 0 % (0-5); Neutrophil % 54.7 % (47-70); Platelet Count 326 K/mm3 (150-450); RBC Distribution Width CV 12.2 % (11.6-14.6); RBC Distribution Width SD 38.9 fl (35.1-43.9); Red Blood Count 5.36 M/mm3 (4.6-6.2)
[2021-10-21 11:33] LABS: Anion Gap 4 (5-15); BUN 18 mg/dL (7-18); BUN/Creat Ratio 15.5 RATIO (10-20); Calcium,Total 8.5 mg/dL (8.5-10.1); Chloride 101 mmol/L (98-107); Creatinine, Serum 1.16 mg/dL (0.70-1.30); EST Glomerular Filtration Rate 74 mL/min (>60); Est Glom Filt Rate - Afr Amer 89 mL/min (>60); Estimated Creatinine Clearance 81.08 ml/min; Glucose 100 mg/dL (74-106); Sodium Level 136 mmol/L (136-145); Troponin-I HS 28 pg/mL (3.0-78.0)
[2021-10-21 12:04] VITALS: BP 108/77; PULSE 63; RESP 18; O2SAT 97
== END 2021-10-21 12:00 | disposition home or self-care (01) ==
PROVIDERS: Emergency Provider Emergency Medicine; PCP Family Medicine; Visit Provider Emergency Medicine
DX: R55 Syncope and collapse (principal); L40.9 Psoriasis, unspecified; Z87.891 Personal history of nicotine dependence; E78.5 Hyperlipidemia, unspecified
CPT/HCPCS: 71045; 80048; 84484; 85025; 93005; 99284; A4216

== ENCOUNTER → 2022-03-21 | Outpatient (CLI) | payer BC, SELFPAY ==
[2022-03-21 15:26] LABS: ALB/GLOB Ratio 1.4 RATIO (0.9-2.4); AST(SGOT) 17 U/L (15-37); Alanine Aminotransfer ALT/SGPT 28 U/L (16-61); Albumin, Serum 3.8 g/dL (3.2-5.0); Alkaline Phosphatase 66 U/L (45-117); Anion Gap 4 (5-15); BUN 22 mg/dL (7-18); BUN/Creat Ratio 18.3 RATIO (10-20); Calcium,Total 8.5 mg/dL (8.5-10.1); Chloride 106 mmol/L (98-107); Cholesterol 166 mg/dL (200); EST Glomerular Filtration Rate 71 mL/min (>60); Est Glom Filt Rate - Afr Amer 85 mL/min (>60); Globulin 2.8 g/dL (2.2-4.2); Glucose 90 mg/dL (74-106); High Density Lipoprotein 35 mg/dL; Potassium 3.9 mmol/L (3.5-5.1); Protein, Total 6.6 g/dL (6.4-8.2); Sodium Level 138 mmol/L (136-145); Triglycerides 137 mg/dL; Very Low Density Lipoprotein 27 mg/dL (5-40)
== END | disposition home or self-care (01) ==
LOC: MFPLAB 12:20
PROVIDERS: PCP Family Medicine; Referring Provider Family Medicine; Visit Provider Family Medicine
DX: E78.5 Hyperlipidemia, unspecified (principal)
CPT/HCPCS: 36415; 80053; 80061

== ENCOUNTER → 2022-10-19 | Outpatient (CLI) | payer BC, SELFPAY ==
--- NOTE | 2022-10-19 11:50 | RAD_ITS ---
STUDY: X-RAY - UNILATERAL RIBS ( LEFT ) WITH CHEST REASON FOR EXAM: Male, 42 years old. Rib injury. Pain. TECHNIQUE - RIBS: 4 view(s) of the ribs. TECHNIQUE - CHEST: Frontal and lateral views of the chest. COMPARISON: Chest dated September 2021. FINDINGS - RIBS: Normal visualized ribs without a demonstrated fracture. FINDINGS - CHEST: The lungs are clear and expanded. There is no demonstrated pleural abnormality. Normal size heart. Normal mediastinum and nelia. Normal visualized pulmonary arteries. Normal visualized aortic arch and descending thoracic aorta. Normal visualized thoracic spine. Normal visualized ribs, clavicles, and shoulders. No demonstrated abnormality of the visualized soft tissue structures of the upper abdomen. RAD/Ribs Uni Min 3V w/PA Chest IMPRESSION: RIBS: Normal x-ray examination of the ribs. CHEST: No interval change in the chest. Normal chest. Electronically Signed: Nael Jensen MD at 15:57 EDT ,
== END | disposition home or self-care (01) ==
LOC: MTRAD 11:44
PROVIDERS: PCP Family Medicine; Referring Provider Family Medicine; Visit Provider Family Medicine
DX: S29.9XXA Unspecified injury of thorax, initial encounter (principal)
CPT/HCPCS: 71101

== ENCOUNTER → 2023-05-17 | Outpatient (CLI) | payer BC, SELFPAY ==
[2023-05-17 15:29] LABS: Anion Gap 4 (5-15); BUN 18 mg/dL (7-18); BUN/Creat Ratio 15.4 RATIO (10-20); Calcium,Total 9.2 mg/dL (8.5-10.1); Chloride 110 mmol/L (98-107); Cholesterol 191 mg/dL (200); Creatinine, Serum 1.17 mg/dL (0.70-1.30); EST Glomerular Filtration Rate 72 mL/min (>60); Est Glom Filt Rate - Afr Amer 88 mL/min (>60); Glucose 87 mg/dL (74-106); High Density Lipoprotein 35 mg/dL; Potassium 3.8 mmol/L (3.5-5.1); Sodium Level 142 mmol/L (136-145); Triglycerides 114 mg/dL; Very Low Density Lipoprotein 23 mg/dL (5-40)
== END | disposition home or self-care (01) ==
LOC: MFPLAB 11:21
PROVIDERS: PCP Family Medicine; Visit Provider Family Medicine
DX: Z00.00 Encounter for general adult medical examination without abnormal findings (principal)
CPT/HCPCS: 36415; 80048; 80061

== ENCOUNTER → 2023-07-24 | Outpatient (CLI) | payer BC, SELFPAY ==
[2023-07-24 16:01] LABS: ALB/GLOB Ratio 1.3 RATIO (0.9-2.4); AST(SGOT) 26 U/L (15-37); Alanine Aminotransfer ALT/SGPT 47 U/L (16-61); Albumin, Serum 4.1 g/dL (3.2-5.0); Alkaline Phosphatase 73 U/L (45-117); Anion Gap 5 (5-15); BUN 23 mg/dL (7-18); BUN/Creat Ratio 20.7 RATIO (10-20); Calcium,Total 9.3 mg/dL (8.5-10.1); Chloride 105 mmol/L (98-107); Cholesterol 166 mg/dL (200); Creatinine, Serum 1.11 mg/dL (0.70-1.30); EST Glomerular Filtration Rate 77 mL/min (>60); Est Glom Filt Rate - Afr Amer 93 mL/min (>60); Globulin 3.1 g/dL (2.2-4.2); Glucose 78 mg/dL (74-106); High Density Lipoprotein 35 mg/dL; Potassium 3.9 mmol/L (3.5-5.1); Protein, Total 7.2 g/dL (6.4-8.2); Sodium Level 139 mmol/L (136-145); Triglycerides 201 mg/dL; Very Low Density Lipoprotein 40 mg/dL (5-40)
== END | disposition home or self-care (01) ==
LOC: MFPLAB 11:30
PROVIDERS: PCP Family Medicine; Visit Provider Family Medicine
DX: E78.5 Hyperlipidemia, unspecified (principal)
CPT/HCPCS: 36415; 80053; 80061

== ENCOUNTER → 2024-01-22 | Outpatient (CLI) | payer BC, SELFPAY ==
[2024-01-22 15:46] LABS: ALB/GLOB Ratio 1.3 RATIO (0.9-2.4); AST(SGOT) 21 U/L (15-37); Alanine Aminotransfer ALT/SGPT 32 U/L (16-61); Albumin, Serum 4.1 g/dL (3.2-5.0); Alkaline Phosphatase 79 U/L (45-117); Anion Gap 5 (5-15); BUN 16 mg/dL (7-18); Calcium,Total 9.2 mg/dL (8.5-10.1); Chloride 104 mmol/L (98-107); Cholesterol 181 mg/dL (200); Creatinine, Serum 1.07 mg/dL (0.70-1.30); EST Glomerular Filtration Rate 80 mL/min (>60); Est Glom Filt Rate - Afr Amer 97 mL/min (>60); Globulin 3.1 g/dL (2.2-4.2); Glucose 90 mg/dL (74-106); High Density Lipoprotein 42 mg/dL; Potassium 4.4 mmol/L (3.5-5.1); Protein, Total 7.2 g/dL (6.4-8.2); Sodium Level 137 mmol/L (136-145); Triglycerides 148 mg/dL; Very Low Density Lipoprotein 30 mg/dL (5-40)
== END | disposition home or self-care (01) ==
LOC: MFPLAB 11:42
PROVIDERS: PCP Family Medicine; Visit Provider Family Medicine
DX: E78.5 Hyperlipidemia, unspecified (principal)
CPT/HCPCS: 36415; 80053; 80061

== ENCOUNTER → 2024-07-31 | Outpatient (CLI) | payer BC, SELFPAY ==
[2024-07-31 16:20] LABS: ALB/GLOB Ratio 1.8 RATIO (0.9-2.4); AST(SGOT) 23 U/L (<=37); Alanine Aminotransfer ALT/SGPT 26 U/L (<=46); Albumin, Serum 4.5 g/dL (3.5-5.0); Alkaline Phosphatase 81 U/L (40-129); Anion Gap 14 (5-15); BUN 16 mg/dL (4-19); BUN/Creat Ratio 14.5 RATIO (10-20); Calcium,Total 9.1 mg/dL (7.6-11.0); Chloride 101 mmol/L (98-108); Creatinine, Serum 1.08 mg/dL (0.70-1.20); EST Glomerular Filtration Rate 87 (>60); Globulin 2.5 g/dL (2.2-4.2); Glucose 71 mg/dL (70-99); Potassium 3.9 mmol/L (3.3-5.1); Protein, Total 6.9 g/dL (5.9-8.4); Sodium Level 139 mmol/L (133-145); Total Bilirubin 0.44 mg/dL (0.00-1.30)
[2024-07-31 18:08] LABS: Cholesterol 182 mg/dL (<=200); High Density Lipoprotein 35 mg/dL; Low Density Lipoprotein Calc. 112 mg/dL; Triglycerides 174 mg/dL; Very Low Density Lipoprotein 35 mg/dL (5-40); cholesterol:hdl ratio screen 5.17
== END | disposition home or self-care (01) ==
LOC: MFPLAB 11:19
PROVIDERS: PCP Family Medicine; Referring Provider Family Medicine; Visit Provider Family Medicine
DX: E78.5 Hyperlipidemia, unspecified (principal)
CPT/HCPCS: 36415; 80053; 80061

== ENCOUNTER → 2025-02-03 | Outpatient (CLI) | payer BC, SELFPAY ==
[2025-02-03 16:05] LABS: AST(SGOT) 35 U/L (<=37); Alanine Aminotransfer ALT/SGPT 52 U/L (<=46); Albumin, Serum 4.5 g/dL (3.5-5.0); Alkaline Phosphatase 91 U/L (40-129); Anion Gap 12 (5-15); BUN 19 mg/dL (4-19); BUN/Creat Ratio 16.7 RATIO (10-20); Calcium,Total 9.8 mg/dL (7.6-11.0); Carbon Dioxide 25.0 mmol/L (21.0-32.0); Chloride 101 mmol/L (98-108); Cholesterol 191 mg/dL (<=200); Globulin 2.7 g/dL (2.2-4.2); Glucose 96 mg/dL (70-99); Low Density Lipoprotein Calc. 85 mg/dL; Potassium 4.4 mmol/L (3.3-5.1); Triglycerides 358 mg/dL; Very Low Density Lipoprotein 72 mg/dL (5-40); cholesterol:hdl ratio screen 5.52
== END | disposition home or self-care (01) ==
LOC: MFPLAB 11:29
PROVIDERS: PCP Family Medicine; Visit Provider Family Medicine
DX: E78.5 Hyperlipidemia, unspecified (principal)
CPT/HCPCS: 36415; 80053; 80061